=== PATIENT | female | born 1995 | race Caucasian/White ===

== ENCOUNTER → 2020-05-15 | Outpatient (REF) | payer OTHER ==
[2020-05-15 14:04] LABS: HEMATOCRIT 39.8 % (36.0-47.0); HEMOGLOBIN 13.6 g/dl (12.0-15.5); MEAN CORPUSCULAR HEMOGLOBIN 32.2 pg (27.0-33.0); MEAN CORPUSCULAR HGB CONC 34.2 g/dl (32.0-36.5); MEAN CORPUSCULAR VOLUME 94.1 fl (80.0-96.0); PLATELET COUNT, AUTOMATED 267 10^3/uL (150-450); RED BLOOD COUNT 4.23 10^6/uL (4.00-5.40); WHITE BLOOD COUNT 12.6 10^3/uL (4.0-10.0)
[2020-05-15 14:37] LABS: GLUCOSE CHALLENGE TEST 1 HOUR 119 MG/DL (LESS THAN 140)
[2020-05-15 14:41] LABS: HEMOGLOBIN A1c 5.3 %
[2020-05-15 15:24] LABS: CHLAMYDIA DNA AMPLIFICATION NEGATIVE (NEGATIVE); GC DNA AMPLIFICATION NEGATIVE (NEGATIVE)
[2020-05-15 16:59] LABS: HEPATITIS C VIRUS ABY INDEX < 0.0 INDEX (<0.8)
[2020-05-15 17:00] LABS: HIV 1&2 SCREEN CENTAUR NEGATIVE (NEGATIVE)
== END ==
LOC: M PLALAB 09:41
PROVIDERS: ATTEND Advanced Practice Midwife
DX: Z3A.27 27 weeks gestation of pregnancy (principal)

== ENCOUNTER → 2020-05-24 | Outpatient (CLI) | payer OTHER ==
--- NOTE | 2020-05-24 10:20 | REP ---
INDICATION: ANATOMY COMPARISON: None. TECHNIQUE: Transabdominal obstetrical ultrasound with color Doppler evaluation. FINDINGS: Examination demonstrates a single live intrauterine in cephalic presentation. motion is identified by technologist. Placenta is noted anterior and grade 2 without evidence for placenta previa or abruption. Amniotic fluid volume is normal. Cervix measures 3.0 cm in length and appears closed. No evidence for nuchal cord. Gestational age by LMP with PALOMO 08/02/2020. Gestational age by current measurements 30 weeks 4 days with PALOMO 07/29/2020. FHR equals 147 beats per minute. CARISA: 13.7 cm (9.0-23.4) Estimated weight 1668 grams (70thpercentile). Anatomical assessment demonstrates normal structures including cranium, choroid plexus, cavum, cerebellum/posterior fossa, facial features, lungs, four-chamber heart/ventricular outflow tracts, diaphragm, stomach, cord insertion/three-vessel cord, kidneys/bladder, spine, and extremities. Limited evaluation of the cavum septum pellucidum, falx and ventricles due to positioning. IMPRESSION: Single live intrauterine in cephalic presentation demonstrating appropriate interval growth. Anatomical limitations as noted above may warrant re-evaluation and follow-up. <Electronically signed by Adriel Rios > 05/24/20 [id number]
== END ==
LOC: M WHC 08:51 → EDUNIT# 09:00
PROVIDERS: ATTEND Advanced Practice Midwife
DX: Z3A.30 30 weeks gestation of pregnancy (principal)

== ENCOUNTER → 2020-05-24 | Outpatient (REF) | payer OTHER ==
[2020-05-24 15:54] LABS: CHLAMYDIA DNA AMPLIFICATION NEGATIVE (NEGATIVE); GC DNA AMPLIFICATION NEGATIVE (NEGATIVE)
== END ==
LOC: M SFHCWAGY 13:25
PROVIDERS: ATTEND Advanced Practice Midwife
DX: Z34.93 Encounter for supervision of normal pregnancy, unspecified, third trimester (principal); Z3A.30 30 weeks gestation of pregnancy
CPT/HCPCS: 76811; 87491; 87591; G0463

== ENCOUNTER → 2020-06-12 | Outpatient (CLI) | payer OTHER ==
--- NOTE | 2020-06-13 03:05 | REP ---
INDICATION: F/U ANATOMY/QUESTION PALOMO COMPARISON: 05/24/2020 TECHNIQUE: Transabdominal obstetrical ultrasound with color Doppler evaluation. FINDINGS: Examination demonstrates a single live intrauterine in cephalic presentation. motion is identified by technologist. Placenta is noted anterior and grade 2 without evidence for placenta previa or abruption. Amniotic fluid volume is normal. Cervix measures 3.6 cm in length and appears closed.. Gestational age by LMP 32 weeks 5 days with PALOMO 08/02/2020. Gestational age by current measurements 33 weeks 4 days with PALOMO 07/27/2020. FHR equals 155 beats per minute. CARISA: 12.9 cm estimated weight 2191 grams (63rdpercentile). Anatomical assessment demonstrates normal structures including cranium, cavum septum pellucidum, falx, facial profile, heart/ventricular outflow tracts, diaphragm, stomach, kidneys/bladder, and three-vessel cord. Continued limited evaluation of the cerebral ventricles due to positioning and motion. IMPRESSION: Single live intrauterine in cephalic presentation demonstrating appropriate estimated weight and growth. In conjunction with prior examination anatomical assessment is essentially complete and within normal limits. Continued limited evaluation of the cerebral ventricles again due to motion and positioning. Remainder of the anatomical assessment is complete. <Electronically signed by Adriel Rios > 06/13/20 [id number]
== END ==
LOC: M WHC 15:20
PROVIDERS: ATTEND Advanced Practice Midwife
DX: Z36.89 Encounter for other specified antenatal screening (principal); Z3A.30 30 weeks gestation of pregnancy

== ENCOUNTER → 2020-07-05 | Outpatient (CLI) | payer OTHER ==
--- NOTE | 2020-07-05 12:41 | REP ---
INDICATION: F/U ANATOMY. Growth. COMPARISON: 06/12/2020. TECHNIQUE: Real-time sonographic evaluation of the gravid uterus performed. FINDINGS: Estimated gestational age is36 weeks 0 days, EDC 08/02/2020. Today's measurements indicate appropriate growth. Presentation: Cephalic Placenta anterior, grade 2, without evidence of placenta previa. heart rate is recorded at 150 beats per minute. Amniotic fluid is subjectively normal. CARISA 13.4, normal range 7.7-24.9. Closed cervical length is measured at 3.3 cm. Biometry chart: BPD: 88 mm, 35 weeks 3 days, 42nd percentile. HC: 314 mm, 35 weeks 3 2 days, 38th percentile AC: 329 mm, 36 weeks 5 days, 62nd percentile Femur length: 68 mm, 35 weeks 0 days, 34th percentile HC to AC ratio: 0.96, normal range 0.92-1.11. Estimated weight: 2823g, 51st percentile. IMPRESSION: Viable single intrauterine gestation as above. <Electronically signed by Fernando Pleitez > 07/05/20 [id number]
== END ==
LOC: M WHC 10:26
PROVIDERS: ATTEND Advanced Practice Midwife
DX: Z34.93 Encounter for supervision of normal pregnancy, unspecified, third trimester (principal); Z3A.36 36 weeks gestation of pregnancy

== ENCOUNTER → 2020-07-10 | Outpatient (REF) | payer OTHER | LOC: M SFHCWAGY 15:11 | PROVIDERS: ATTEND Obstetrics & Gynecology | DX: O99.213 Obesity complicating pregnancy, third trimester (principal) ==

== ENCOUNTER → 2020-07-26 | Outpatient (CLI) | payer OTHER ==
[~2020-07-26] MED LIST: ACET-907 PO; PRENTAB9 PO
== END ==
LOC: M LABSMTC 10:35
PROVIDERS: ATTEND Specialist
DX: Z20.822 Contact with and (suspected) exposure to COVID-19 (principal)

== ENCOUNTER 2020-07-30 05:03 | Inpatient (IN) | payer OTHER ==
[~2020-07-30] VITALS: Ht 165.1 cm; Wt 118.3 kg
[2020-07-30] VITALS (35 sets, daily range): BP systolic 106–151; BP diastolic 57–90
[2020-07-30] MEDS ORDERED: TRANEXAMIC ACID INJection 1,000 MG in NS 100 ML IV PRN (06:55)
[2020-07-30] MEDS ORDERED: OXYTOCIN INJ 10 UNITS/ML VIAL (J2590) IV PRN (06:55)
[2020-07-30] MEDS ORDERED: METHYLERGONOVINE MALEATE 0.2 MG/ML VIAL (J2210) IM PRN (06:55)
[2020-07-30] MEDS ORDERED: LR 1,000 ML IV SCH (06:55)
[2020-07-30] MEDS ORDERED: OXYTOCIN INJ 10 UNITS/ML VIAL (J2590) IM PRN (06:55)
[2020-07-30] MEDS ORDERED: LACTATED RINGER'S 1000 ML IV STA (06:55)
[2020-07-30] MEDS ORDERED: LIDOCAINE 1% MDV 20ML VIAL INFIL PRN (06:55)
[2020-07-30] MEDS ORDERED: CARBOPROST TROMETHAMINE 250 MCG/ML AMP IM PRN (06:55)
[2020-07-30] MEDS ORDERED: OXYTOCIN DRIP 30 UNITS in IV 1 EA IV PRN ×6 (06:55)
--- NOTE | 2020-07-30 07:05 | HPEPDOC ---
Obstetrical History & Physical General Date of Admission Jul 30, 2020 at 06:52 History of Present Illness 24-year-old at 39+4 weeks gestation. Presents with frequent, painful uterine contractions over the past several hours. Denies any loss of fluid or vaginal bleeding. Reports regular movement. ROS: no OBRIEN, cp, sob, fever/chills/nausea/vomiting. course: uncomplicated PMH: none SH: tonsillectomy Meds: vitamin, All: NKDA MANAGER RELATIONSHIP: No STI or dysplasia OB: G1 Sochx: No tobacco, alcohol or drug use FamHx: none reported labs: Blood type O+, antibody screen negative, HepBsAg neg, HIV neg, rubella immune, Hep C antibody negative, RPR nonreactive, CT/GC neg, urine culture negative, 1 hour glucose challenge test 119, hgb A1c 5.3 , GBS negative COVID-19 screen: negative imaging: no anomalies or placental abnormalities Physical Examination Physical Examination GENERAL: Alert and oriented times three. ABDOMEN: Gravid and non-tender to touch. FETUS: Is vertex (VTX) by sterile vaginal examination (SVE), fetus is vertex (VTX) by Ronald. HEART RATE: Regular rate and rhythm. LUNGS: Clear to auscultation (CTA). EXTREMITIES: No edema. No clonus. SVE: 6-7cm, 90%, -1; intact, cephalic, bulging membranes EFM: Cat I [place]: ctxs every 3-5 min Vital Signs/I&O Vital Signs Date Time Temp Pulse Resp B/P (MAP) Pulse Ox O2 Delivery O2 Flow Rate FiO2 07/30/20 06:25 114 18 143/78 (99) 07/30/20 05:29 99.0 Laboratory Data 24H LABS Laboratory Tests 2 07/30/20 06:57: Serology Scanned Report Hepatitis B Testing Assessment/Plan Assessment 24yo at 39+0 weeks. Active labor. Reassuring maternal and status. Plan Admit and orient. Lance Crewmember/Mlrs Sergeant and consent. Labs and intravenous (IV) per unit protocol. Anticipate normal spontaneous delivery (). C-S as appropriate. KELLEN BARCLAY DO Jul 30, 2020 07:05
[2020-07-30] MEDS ORDERED: ACET-907 PO (07:20)
[2020-07-30] MEDS ORDERED: PRENTAB9 PO (07:20)
[2020-07-30 07:54] LABS: HEMATOCRIT 38.8 % (36.0-47.0); HEMOGLOBIN 13.3 g/dl (12.0-15.5); MEAN CORPUSCULAR HEMOGLOBIN 30.9 pg (27.0-33.0); MEAN CORPUSCULAR HGB CONC 34.3 g/dl (32.0-36.5); PLATELET COUNT, AUTOMATED 231 10^3/uL (150-450); RED BLOOD COUNT 4.31 10^6/uL (4.00-5.40); WHITE BLOOD COUNT 15.9 10^3/uL (4.0-10.0)
[2020-07-30] MEDS ORDERED: EPIDURAL COMMENT XX SCH (10:00)
[2020-07-30] MEDS ORDERED: ONDANSETRON 4MG/2ML VIAL IV PRN (10:00)
[2020-07-30] MEDS ORDERED: diphenhydrAMINE 50MG/ML VIAL (J1200) IV PRN (10:00)
[2020-07-30] MEDS ORDERED: NALOXONE INJ 0.4MG/1ML VIAL (J2310 PER 1MG) IV PRN (10:00)
[2020-07-30] MEDS ORDERED: EPIDURAL/PCA KEYS XX PRN (10:00)
[2020-07-30] MEDS ORDERED: REFRIGERATOR IV KEYS XX PRN (10:00)
[2020-07-30] MEDS ORDERED: FENTANYL/ROPIVACAINE/NACL BAG 100 ML EPIDURAL SCH (10:00)
[2020-07-30] MEDS ORDERED: FENTANYL 2MCG/ML ROPIVACAINE 0.2% IN 0.9% NACL 100ML IVBAG As Ordered ONE (10:03)
[2020-07-30] MEDS ORDERED: ACETAMINOPHEN 500 MG TAB PO PRN (16:45)
[2020-07-30] MEDS ORDERED: DIBUCAINE 1% OINTMENT 30GM TOP PRN (16:45)
[2020-07-30] MEDS ORDERED: MEASLES,MUMPS,RUBELLA VACCINE INJ (MMR-II) (90707) SC SCH (16:45)
[2020-07-30] MEDS ORDERED: RHOGAM 300 MCG (1500 IU) INJ (J2790) IM SCH (16:45)
[2020-07-30] MEDS ORDERED: METHYLERGONOVINE MALEATE 0.2 MG TAB PO PRN (16:45)
[2020-07-30] MEDS ORDERED: IBUPROFEN 600MG TAB PO PRN (16:45)
[2020-07-30] MEDS: ACETAMINOPHEN TAB 650MG DOSE (2X325MG) PO PRN (21:11)
[2020-07-30] MEDS: IBUPROFEN 800 MG TAB PO PRN (23:47)
[2020-07-31 05:42] VITALS: BP 120/69
[2020-07-31] MEDS: DOCUSATE SODIUM 100MG CAPSULE PO PRN ×2 (08:18→21:05)
[2020-07-31] MEDS: PRENATAL VITAMINS CHEWABLE TABLET PO SCH (08:18)
--- NOTE | 2020-07-31 09:03 | DN ---
DELIVERY NOTE DATE OF DELIVERY: 07/30/2020 TIME OF : Priti is a 24-year-old 1, para 1-0-0-1 now who was admitted to Labor and Delivery in labor. She did utilize an epidural for labor coping. She progressed under her own mera. I entered the room following a nurse controlled delivery at 1605. The was crying and active on the maternal abdomen. The cord was clamped x 2 and cut by father under my direction. Cord blood was obtained. There was spontaneous expulsion of an intact placenta with three vessel cord by Schultze mechanism at 1615. Uterine hemostasis achieved with IV Pitocin rapid infusion and uterine fundal massage. Estimated blood loss 400 mL. Perineum and vagina inspected. Noted to have a second degree midline laceration. Laceration repaired with 3-0 Vicryl Rapide in the usual fashion. female weighed 8 pounds 6 ounces 3810 grams. Mom is going to formula feed, and the family have named their daughter Greg. Apgars 8 and 9. At the close of delivery, lap counts, needle counts, and instrument counts were correct and verified. [facility]
[2020-07-31] MEDS: IBUPROFEN 800 MG TAB PO PRN ×2 (09:34→19:20)
[2020-07-31 18:00] VITALS: BP 121/69
[2020-07-31] MEDS: ACETAMINOPHEN TAB 650MG DOSE (2X325MG) PO PRN (21:05)
[2020-08-01] MEDS: IBUPROFEN 800 MG TAB PO PRN ×2 (04:22→10:47)
[2020-08-01] MEDS: ACETAMINOPHEN TAB 650MG DOSE (2X325MG) PO PRN (05:29)
[2020-08-01 06:00] VITALS: BP 128/58
[2020-08-01] MEDS: PRENATAL VITAMINS CHEWABLE TABLET PO SCH (07:42)
[2020-08-01] MEDS ORDERED: DOK1CAP7 PO (08:43)
[2020-08-01] MEDS ORDERED: IBUP80TA PO (08:43)
[2020-08-01] MEDS ORDERED: MEDIPAD6 EXT (08:43)
--- NOTE | 2020-08-01 08:46 | IPNPDOC ---
Progress Note Date of Service: Aug 01, 2020 Day#: 2 Progress Note PPD 2 SUBJECT: Priti is a 24yo [id number] s/p uncomplicated after presenting in labor at term, doing well day # 2. She has been ambulating, voiding spontaneously without issue and tolerating regular diet. Bottle feeding without issue. Reports lochia is like a normal period. No f/c/n/v/CP/SOB. OBJECTIVE: VITAL SIGNS: Within normal limits, afebrile. Alert and oriented times three. Abdomen: Fundus firm at U-2. Soft, NTTP. Extremities: no pain with palpation of calves ASSESSMENT: Priti is a 24yo [id number] s/p uncomplicated after presenting in labor at term, doing well day # 2. Vitals within normal limits, afebrile, hemodynamically stable with no evidence of infection. PLAN: 1. Discharge to home today. 2. Tylenol and Motrin for pain. Papito dela cruz rx'ed. Colace for bowel regimen. 3. Encourage ambulation. 4. uncertain about desires for contraception, will re-discuss at 6wk PP 5. Routine PP visit in 6 weeks in clinic. 6. Discussed return precautions at length. Shayla Velasco MD VS, I&O, 24H, Fishbone Vital Signs/I&O Vital Signs Date Time Temp Pulse Resp B/P (MAP) Pulse Ox O2 Delivery O2 Flow Rate FiO2 08/01/20 06:00 98.7 87 20 128/58 (81) 98 Room Air Shayla Velasco MD Aug 01, 2020 08:46
--- NOTE | 2020-08-01 08:50 | DS.PDOC ---
Discharge Summary General Date of Admission Jul 30, 2020 at 06:52 Date of Discharge Aug 01, 2020 Discharge Summary PROCEDURES PERFORMED DURING STAY: spontaneous vaginal delivery ADMITTING DIAGNOSES: 1. active labor at term DISCHARGE DIAGNOSES: 1. active labor at term, delivered COMPLICATIONS/CHIEF COMPLAINT: Labor Check. HISTORY OF PRESENT ILLNESS/HOSPITAL COURSE: Priti is a 24yo [id number] s/p uncomplicated after presenting in labor at term, doing well day # 2. She had a benign course. Vitals within normal limits, afebrile, hemodynamically stable with no evidence of infection. DISCHARGE MEDICATIONS: Please see below. ALLERGIES: Please see below. PHYSICAL EXAMINATION ON DISCHARGE: VITAL SIGNS: Within normal limits, afebrile. Alert and oriented times three. Abdomen: Fundus firm at U-2. Soft, NTTP. Extremities: no pain with palpation of calves LABORATORY DATA: Please see below. DIET: regular DISCHARGE PLAN/INSTRUCTIONS: 1. Discharge to home today. 2. Tylenol and Motrin for pain. Witch lanie rx'ed. Colace for bowel regimen. 3. Encourage ambulation. 4. uncertain about desires for contraception, will re-discuss at 6wk PP 5. Routine PP visit in 6 weeks in clinic. 6. Discussed return precautions at length. DISCHARGE CONDITION: Stable TIME SPENT ON DISCHARGE: Greater than 20 minutes. Vital Signs/I&Os Vital Signs Date Time Temp Pulse Resp B/P (MAP) Pulse Ox O2 Delivery O2 Flow Rate FiO2 08/01/20 06:00 98.7 87 20 128/58 (81) 98 Room Air Discharge Medications Scheduled No.137/Iron/Folic Acd ( Vitamin Tablet) 1 Each Tablet, 1 TAB PO DAILY, (Reported) Scheduled PRN Docusate Sodium (Dok) 100 Mg Capsule, 100 MG PO BIDP PRN for CONSTIPATION Ibuprofen (Ibuprofen) 800 Mg Tablet, 800 MG PO Q8HP PRN for PAIN LEVEL 6-10 Witch Lanie Galt (Pre-Moistened Medicated Wipes) 1 Each Pad, 50 % EXT Q6HP PRN for PAIN Miscellaneous Medications Acetaminophen (Tylenol) 325 Mg Tablet, 500 MG PO, (Reported) Allergies Coded Allergies: No Known Allergies (Unverified , 07/30/20) Shayla Velasco MD Aug 01, 2020 08:50
== END 2020-08-01 11:50 | disposition home or self-care (01) | DRG 807 ==
LOC: M LDO 05:03 → M LDI 06:52 → M OBS 19:51
PROVIDERS: ADMIT Obstetrics & Gynecology; ATTEND Obstetrics & Gynecology
PROC: 10E0XZZ Delivery of Products of Conception, External Approach (ICD-10-PCS; principal; 2020-07-30)
PROC: 0HQ9XZZ Repair Perineum Skin, External Approach (ICD-10-PCS; 2020-07-30)
DX: O70.1 Second degree perineal laceration during delivery (principal); Z37.0 Single live birth; Z3A.39 39 weeks gestation of pregnancy

== ENCOUNTER → 2020-12-07 | Outpatient (CLI) | payer OTHER ==
[~2020-12-07] MED LIST changes: +DOK1CAP4 PO; +IBUP80TA PO; +MEDIPAD6 EXT
[2020-12-07 15:12] LABS: HEMATOCRIT 39.4 % (36.0-47.0); HEMOGLOBIN 13.4 g/dl (12.0-15.5); MEAN CORPUSCULAR HEMOGLOBIN 30.1 pg (27.0-33.0); MEAN CORPUSCULAR VOLUME 88.5 fl (80.0-96.0); PLATELET COUNT, AUTOMATED 285 10^3/uL (150-450); RED BLOOD COUNT 4.45 10^6/uL (4.00-5.40); WHITE BLOOD COUNT 12.5 10^3/uL (4.0-10.0)
[2020-12-07 15:32] LABS: HEMOGLOBIN A1c 5.6 %
[2020-12-07 16:23] LABS: HEPATITIS C VIRUS ABY INDEX 0.1 INDEX (<0.8); HIV 1&2 SCREEN CENTAUR NEGATIVE (NEGATIVE)
[2020-12-07 19:51] LABS: GC DNA AMPLIFICATION NEGATIVE (NEGATIVE)
== END ==
LOC: M PLALAB 12:55
PROVIDERS: ATTEND Advanced Practice Midwife
DX: O99.212 Obesity complicating pregnancy, second trimester (principal); Z3A.00 Weeks of gestation of pregnancy not specified

== ENCOUNTER → 2021-03-04 | Outpatient (CLI) | payer OTHER ==
--- NOTE | 2021-03-05 14:26 | REP ---
INDICATION: ANATOMY. COMPARISON: None. TECHNIQUE: Real-time sonographic evaluation of the gravid uterus performed. FINDINGS: Estimated gestational age is26 weeks 1 day, EDC 06/09/2021. Today's measurements indicate appropriate growth. Presentation: Cephalic Placenta anterior, grade 1, without evidence of placenta previa. heart rate is recorded at 158 beats per minute. Amniotic fluid is subjectively normal. Closed cervical length is measured at 4.2 cm. Biometry chart: BPD: 68 mm, 27 weeks 2 days, 74th percentile. HC: 241 mm, 26 weeks 1 days, 50th percentile AC: 217 mm, 26 weeks 1 days, 50th percentile Femur length: 49 mm, 26 weeks 4 days, 58th percentile HC to AC ratio: 1.11, normal range 1.00-1.19. Estimated weight: 924g, 47th percentile. anatomy: Cranium: Grossly normal Lateral Ventricles/Choroid Plexus: Grossly normal Posterior Fossa/Cerebellum: Grossly normal Nose/lips/profile: Grossly normal Four chamber heart: Grossly normal Right ventricular outflow tract: Grossly normal Left ventricular outflow tract: Grossly normal Left-sided stomach: Grossly normal Kidneys: Grossly normal Bladder: Grossly normal Cord Insertion: Grossly normal 3 vessel cord: Grossly normal Spine: Grossly normal IMPRESSION: Viable single intrauterine gestation as above. <Electronically signed by Fernando Pleitez > 03/05/21 [id number]
== END ==
LOC: M WHC 13:44
PROVIDERS: ATTEND Obstetrics & Gynecology
DX: Z34.82 Encounter for supervision of other normal pregnancy, second trimester (principal); Z3A.26 26 weeks gestation of pregnancy

== ENCOUNTER → 2021-03-12 | Outpatient (CLI) | payer OTHER ==
[2021-03-12 13:47] LABS: HEMATOCRIT 39.9 % (36.0-47.0); HEMOGLOBIN 13.2 g/dl (12.0-15.5); MEAN CORPUSCULAR HEMOGLOBIN 31.6 pg (27.0-33.0); MEAN CORPUSCULAR HGB CONC 33.1 g/dl (32.0-36.5); MEAN CORPUSCULAR VOLUME 95.5 fl (80.0-96.0); PLATELET COUNT, AUTOMATED 264 10^3/uL (150-450); RED BLOOD COUNT 4.18 10^6/uL (4.00-5.40); WHITE BLOOD COUNT 14.3 10^3/uL (4.0-10.0)
== END ==
LOC: M PLALAB 09:09
PROVIDERS: ATTEND Obstetrics & Gynecology
DX: Z34.82 Encounter for supervision of other normal pregnancy, second trimester (principal); Z3A.00 Weeks of gestation of pregnancy not specified

== ENCOUNTER → 2021-04-09 | Outpatient (CLI) | payer OTHER | LOC: M LAB 07:06 | PROVIDERS: ATTEND Specialist | DX: Z34.83 Encounter for supervision of other normal pregnancy, third trimester (principal); Z3A.00 Weeks of gestation of pregnancy not specified ==

== ENCOUNTER → 2021-05-13 | Outpatient (REF) | payer OTHER | LOC: M PLALAB 13:30 | PROVIDERS: ATTEND Advanced Practice Midwife | DX: Z36.85 Encounter for antenatal screening for Streptococcus B (principal) | CPT/HCPCS: 87081; G0463 ==

== ENCOUNTER → 2021-05-15 | Outpatient (CLI) | payer OTHER | LOC: M WHC 10:01 | PROVIDERS: ATTEND Advanced Practice Midwife | DX: O24.419 Gestational diabetes mellitus in pregnancy, unspecified control (principal); Z3A.36 36 weeks gestation of pregnancy ==

== ENCOUNTER 2021-05-19 11:37 | Inpatient (IN) | payer OTHER ==
[2021-05-19] VITALS (22 sets, daily range): BP systolic 114–198; BP diastolic 63–107
[~2021-05-19] VITALS: Ht 165.1 cm; Wt 115.0 kg
[2021-05-19] MEDS ORDERED: METF500T13 PO (11:56)
[2021-05-19] MEDS ORDERED: HOME MED LIST COMPLETE! XX SCH (12:00)
[2021-05-19] MEDS ORDERED: OXYTOCIN DRIP 30 UNITS in IV 1 EA IV PRN ×4 (14:30)
[2021-05-19] MEDS ORDERED: TRANEXAMIC ACID INJection 1,000 MG in NS 100 ML IV PRN (14:30)
[2021-05-19] MEDS ORDERED: LIDOCAINE 1% MDV 20ML VIAL INFIL PRN (14:30)
[2021-05-19] MEDS ORDERED: OXYTOCIN DRIP 30 UNITS in IV 1 EA IV SCH ×2 (14:30→20:30)
[2021-05-19] MEDS ORDERED: LR 1,000 ML IV SCH (14:30)
[2021-05-19] MEDS ORDERED: CARBOPROST TROMETHAMINE 250 MCG/ML AMP IM PRN (14:30)
[2021-05-19] MEDS ORDERED: METHYLERGONOVINE MALEATE 0.2 MG/ML VIAL (J2210) IM PRN (14:30)
[2021-05-19 15:51] LABS: HEMATOCRIT 36.7 % (36.0-47.0); HEMOGLOBIN 12.3 g/dl (12.0-15.5); MEAN CORPUSCULAR HEMOGLOBIN 30.5 pg (27.0-33.0); MEAN CORPUSCULAR HGB CONC 33.5 g/dl (32.0-36.5); MEAN CORPUSCULAR VOLUME 91.1 fl (80.0-96.0); PLATELET COUNT, AUTOMATED 199 10^3/uL (150-450); RED BLOOD COUNT 4.03 10^6/uL (4.00-5.40); WHITE BLOOD COUNT 12.9 10^3/uL (4.0-10.0)
[2021-05-19] MEDS ORDERED: RHOGAM 300 MCG (1500 IU) INJ (J2790) IM SCH (20:30)
[2021-05-19] MEDS ORDERED: MOM 30ML SUSPENSION UDC PO PRN (20:30)
[2021-05-19] MEDS ORDERED: ACETAMINOPHEN TAB 650MG DOSE (2X325MG) PO PRN (20:30)
[2021-05-19] MEDS ORDERED: DIBUCAINE 1% OINTMENT 30GM TOP PRN (20:30)
[2021-05-19] MEDS ORDERED: METHYLERGONOVINE MALEATE 0.2 MG TAB PO PRN (20:30)
[2021-05-19] MEDS ORDERED: IBUPROFEN 600MG TAB PO PRN (20:30)
[2021-05-19] MEDS ORDERED: DOCUSATE SODIUM 100MG CAPSULE PO PRN (20:30)
[2021-05-19] MEDS ORDERED: MEASLES,MUMPS,RUBELLA VACCINE INJ (MMR-II) (90707) SC SCH (20:30)
[2021-05-19] MEDS ORDERED: IBUPROFEN 800 MG TAB PO PRN (20:30)
[2021-05-19] MEDS: ACETAMINOPHEN 500 MG TAB PO PRN (22:30)
[2021-05-20 06:00] VITALS: BP 114/55
[2021-05-20] MEDS: PRENATAL VITAMINS CHEWABLE TABLET PO SCH (07:33)
[2021-05-20 07:54] VITALS: BP 133/62
[2021-05-20] MEDS: ACETAMINOPHEN 500 MG TAB PO PRN (17:34)
[2021-05-20 17:39] VITALS: BP 138/88
[2021-05-21 05:26] VITALS: BP 116/64
[2021-05-21] MEDS: PRENATAL VITAMINS CHEWABLE TABLET PO SCH (07:48)
[2021-05-21 07:58] VITALS: BP 116/64
[2021-05-21] MEDS ORDERED: IBUP80TA PO (10:40)
== END 2021-05-21 11:48 | disposition home or self-care (01) | DRG 807 ==
LOC: M LDO 11:37 → M LDI 14:22 → M OBS 21:43
PROVIDERS: ADMIT Obstetrics & Gynecology; ATTEND Obstetrics & Gynecology
PROC: 10E0XZZ Delivery of Products of Conception, External Approach (ICD-10-PCS; principal; 2021-05-19)
DX: O24.425 Gestational diabetes mellitus in childbirth, controlled by oral hypoglycemic drugs (principal); Z37.0 Single live birth; Z3A.37 37 weeks gestation of pregnancy